=== PATIENT | male | born 1990 ===

== ENCOUNTER 2017-05-17 07:54 | Emergency (ER) | payer OTHER ==
[2017-05-17 08:13] VITALS: BP 153/84; RESP 16
[2017-05-17] MEDS ORDERED: Sodium Chloride 0.9% 1,000 ML IV STA (08:46)
[2017-05-17] MEDS ORDERED: Dexamethasone 10 MG in Sodium Chloride 0.9% 50 ML IV STA (08:47)
[2017-05-17 09:21] LABS: BASO # 0.1 K/uL (0.0-0.2); BASO % 0.4 % (0.0-2.0); EOS # 0.1 K/uL (0.0-0.7); EOS % 0.3 % (0.0-4.0); HEMATOCRIT 43.4 % (35.0-51.0); LYMPH % 5.4 % (20.0-40.0); MEAN CELL VOLUME 85.3 fl (80.0-94.0); MEAN CORPUSCULAR HEMOGLOBIN 28.4 pg (27.0-31.0); MEAN CORPUSCULAR HGB CONC 33.3 g/dL (33.0-37.0); MEAN PLATELET VOLUME 9.5 fl (7.2-11.7); MONO # 1.9 K/uL (0.0-0.8); MONO % 10.3 % (0.0-10.0); NEUT # 15.8 K/uL (1.8-7.0); NEUT % 83.6 % (50.0-75.0); PLATELET COUNT 257 K/uL (130-400); RED CELL DISTRIBUTION WIDTH 12.9 % (11.5-14.5); WHITE BLOOD COUNT 18.9 K/uL (4.8-10.8)
[2017-05-17 09:32] LABS: ALKALINE PHOSPHATASE 78 U/L (38-126); ALT/SGPT 48 U/L (21-72); AST/SGOT 38 U/L (17-59); BILIRUBIN,TOTAL 0.7 mg/dl (0.2-1.3); BLOOD UREA NITROGEN 10 mg/dl (9-20); CALCIUM 9.2 mg/dL (8.4-10.2); CARBON DIOXIDE 25 mmol/L (22-30); CHLORIDE 101 mmol/L (98-107); GFR AFRICAN-AMERICAN > 60; GLUCOSE,RANDOM 137 mg/dL (75-110); POTASSIUM 4.1 MMOL/L (3.6-5.0); SODIUM 139 mmol/l (132-148); TOTAL PROTEIN 8.4 G/DL (6.3-8.2)
--- NOTE | 2017-05-17 09:32 | ED PDOC ---
HPI: General Adult Time Seen by Provider: 05/17/17 08:38 Chief Complaint (Nursing): Flu-like Symptoms Chief Complaint (Provider): Flu-like Symptoms History Per: Patient History/Exam Limitations: no limitations Onset/Duration Of Symptoms: Days (x2) Current Symptoms Are (Timing): Still Present Additional Complaint(s): Khadar Fowler is a 26 year old male with no past medical history who presents to the ED complaining of fever and sore throat x2 days. Denies associated vomiting, diarrhea, cough or nasal discharge. States he last took Tylenol yesterday. PMD: Provider TBD Past Medical History Reviewed: Historical Data, Nursing Documentation, Vital Signs Vital Signs: Last Vital Signs Temp 98.9 F 05/17/17 10:04 Pulse 98 H 05/17/17 10:04 Resp 16 05/17/17 10:04 BP 153/84 H 05/17/17 08:11 Pulse Ox 100 05/17/17 10:04 - Medical History PMH: Asthma, HTN - Surgical History Surgical History: Back Surgery (Lower back cyst removal) - Family History Family History: States: Unknown Family Hx - Social History Current smoker - smoking cessation education provided: No Alcohol: None Drugs: Denies - Home Medications Home Medications: Ambulatory Orders Medication Instructions Recorded Azithromycin [Zithromax] 500 mg PO DAILY #4 tab 05/17/17 Ibuprofen [Motrin Tab] 800 mg PO Q6H PRN #20 tab 05/17/17 - Allergies Allergies/Adverse Reactions: Allergies Allergy/AdvReac Type Severity Reaction Status Date / Time No Known Allergies Allergy Verified 09/04/15 19:59 Review of Systems ROS Statement: Except As Marked, All Systems Reviewed And Found Negative Constitutional: Positive for: Fever ENT: Positive for: Throat Pain. Negative for: Nose Discharge Respiratory: Negative for: Cough Gastrointestinal: Negative for: Vomiting, Diarrhea Physical Exam - Reviewed Nursing Documentation Reviewed: Yes Vital Signs Reviewed: Yes - Physical Exam Appears: Positive for: In Acute Distress (Mild painful distress) Head Exam: Positive for: ATRAUMATIC, NORMAL INSPECTION, NORMOCEPHALIC Skin: Positive for: Normal Color, Warm, Dry Eye Exam: Positive for: EOMI, Normal appearance, PERRL ENT: Positive for: Pharynx Is (erythematous), Tonsillar Swelling, Other (Uvula midline with no exudates) Neck: Positive for: Normal, Painless ROM, Supple Cardiovascular/Chest: Positive for: Tachycardia (regular rhythm). Negative for : Murmur Respiratory: Positive for: Normal Breath Sounds. Negative for: Respiratory Distress Gastrointestinal/Abdominal: Positive for: Normal Exam, Bowel Sounds, Soft. Negative for: Tenderness Back: Positive for: Normal Inspection. Negative for: L CVA Tenderness, R CVA Tenderness, Vertebral Tenderness Extremity: Positive for: Normal ROM. Negative for: Pedal Edema, Deformity Neurologic/Psych: Positive for: Alert, Oriented. Negative for: Motor/Sensory Deficits - Laboratory Results Result Diagrams: 05/17/17 09:11 05/17/17 09:11 - ECG O2 Sat by Pulse Oximetry: 97 (RA) Pulse Ox Interpretation: Normal Medical Decision Making Medical Decision Making: Time: 08:46 Initial Impression: Flu, strep Plan: --VBG shock panel --EKG --CMP --ED urine dipstick --CBC w/ differential --X-Ray chest two views --Decadron Inj, Sodium Chloride 0.9% IV --Decadron Inj 10 mg IVP --Toradol 15 mg IVP --Tylenol 650 mg PO --Blood culture --Coke --Influenza A B --Rapid strep group A antigen --Reevaluation Scribe Attestation: Documented by Richard Alanis acting as a scribe for Dacia Bello MD. Scribe Attestation: All medical record entries made by the Scribe were at my direction and personally dictated by me. I have reviewed the chart and agree that the record accurately reflects my personal performance of the history, physical exam, medical decision making, and the department course for this patient. I have also personally directed, reviewed, and agree with the discharge instructions and disposition. Disposition - Clinical Impression Clinical Impression: Strep pharyngitis - Disposition Referrals: [facility] [Outside] [facility] [Outside] Disposition: Routine/Home Disposition Time: 12:26 Condition: IMPROVED Prescriptions: Azithromycin [Zithromax] 500 mg PO DAILY #4 tab Ibuprofen [Motrin Tab] 800 mg PO Q6H PRN #20 tab PRN Reason: Fever >100.4 F Instructions: Strep Throat (ED) Forms: Murali Singletary (French), [facility] ED School/Work Excuse
[2017-05-17 09:34] LABS: ALB/GLOB RATIO 1.3 (1.0-2.1)
[2017-05-17 09:49] LABS: VENOUS BLOOD GAS BASE EXCESS 1.3 mmol/L (0.0-2.0); VENOUS BLOOD GAS PCO2 36 mmHg (40-60); VENOUS BLOOD PH 7.45 (7.32-7.43)
[2017-05-17] MEDS ORDERED: Azithromycin 500 MG in Sodium Chloride 0.9% 250 ML IV STA (09:52)
[2017-05-17 10:05] VITALS: PULSE 98; TEMP 98.9
[2017-05-17 11:52] LABS: NEUTROPHIL 87 % (42-75); TOTAL CELLS COUNTED 100
--- NOTE | 2017-05-17 12:07 | RAD ---
HISTORY: Fever COMPARISON: No prior. TECHNIQUE: Chest PA and lateral FINDINGS: LUNGS: Increased markings at the end left base, left lower lobe. This may represent subsegmental infiltrate. PLEURA: No significant pleural effusion identified. No pneumothorax apparent. CARDIOVASCULAR: Normal. OSSEOUS STRUCTURES: No significant abnormalities. VISUALIZED UPPER ABDOMEN: Normal. OTHER FINDINGS: None. IMPRESSION: Questionable left lower lobe infiltrate .
--- NOTE | 2017-05-17 13:39 | CARD ---
APPROVED REPORT EKG Measurement Heart [id number] <Conclusion> Sinus tachycardia Otherwise normal ECG
[2017-05-18 19:41] VITALS: O2SAT 97
== END 2017-05-17 12:45 | disposition home or self-care (01) ==
LOC: H.ER 07:54
DX: J02.0 Streptococcal pharyngitis (principal); J45.909 Unspecified asthma, uncomplicated; I10 Essential (primary) hypertension
CPT/HCPCS: 71020; 80053; 82803; 85025; 86308; 87040; 87430; 87804; 93005; 96361; 96365; 96375; 99284; J0456; J1100; J1885; J7040

== ENCOUNTER 2018-06-16 06:57 | Emergency (ER) | payer OTHER ==
[2018-06-16 07:09] VITALS: TEMP 100.7; O2SAT 96; BMI 32.3
[2018-06-16] MEDS ORDERED: Albuterol-Ipratrop 3 mg / 0.5 (3 ml) UD INH STA (07:34)
--- NOTE | 2018-06-16 07:55 | ED PDOC ---
History of Present Illness History of Present Illness: 28 y/o male with history of hypertension presents to ER for evaluation of cough, congestion, runny nose and chest pain onset yesterday. Patient reports having chest pain and back pain only when coughing as well as eye pain. He states runny nose is resolved now. Patient denies any nausea, vomit, diarrhea, abdominal pain, shortness of breath, allergies or taking any medications. PMD: non provided HPI: Influenza Time Seen by Provider: 06/16/18 07:16 Chief Complaint: Cough, Cold, Congestion Chief Complaint (Provider): Cough, Cold, Congestion History Per: Patient Exam Limitations: no limitations Onset/Duration Of Symptoms: Days (x1) Symptoms include: cough, nasal congestion, chest pain. denies: diarrhea, difficulty breathing Past Medical History Reviewed: Historical Data, Nursing Documentation, Vital Signs Vital Signs: Last Vital Signs Temp 100.7 F H 06/16/18 07:09 Pulse 106 H 06/16/18 07:09 Resp 20 06/16/18 07:09 BP 147/73 06/16/18 07:09 Pulse Ox 96 06/16/18 07:09 - Medical History PMH: Asthma, HTN - Surgical History Surgical History: Back Surgery (Lower back cyst removal) - Family History Family History: States: Unknown Family Hx - Social History Current smoker - smoking cessation education provided: Yes Alcohol: Social Drugs: Denies - Home Medications Home Medications: Ambulatory Orders Medication Instructions Recorded Azithromycin [Zithromax] 500 mg PO DAILY #4 tab 05/17/17 Ibuprofen [Motrin Tab] 800 mg PO Q6H PRN #20 tab 05/17/17 Albuterol Sulfate [Proair Hfa] 0.09 mg IH Q6H PRN #2 inh 06/16/18 Benzonatate [Tessalon Perles] 100 mg PO BID PRN 5 Days sgl 06/16/18 Ibuprofen [Motrin] 600 mg PO TID 7 Days tab 06/16/18 Oseltamivir Phosphate [Tamiflu] 75 mg PO BID 5 Days capsule 06/16/18 predniSONE [predniSONE Tab] 20 mg PO BID 5 Days tab 06/16/18 - Allergies Allergies/Adverse Reactions: Allergies Allergy/AdvReac Type Severity Reaction Status Date / Time No Known Allergies Allergy Verified 09/04/15 19:59 Review of Systems ROS Statement: Except As Marked, All Systems Reviewed And Found Negative ENT: Positive for: Nose Congestion Cardiovascular: Positive for: Chest Pain Respiratory: Positive for: Cough. Negative for: Shortness of Breath Gastrointestinal: Negative for: Abdominal Pain, Diarrhea Musculoskeletal: Positive for: Back Pain (but no numbness/tingles/incontinence/constipation) Physical Exam - Reviewed Nursing Documentation Reviewed: Yes Vital Signs Reviewed: Yes - Physical Exam Appears: Positive for: Non-toxic, No Acute Distress Head Exam: Positive for: ATRAUMATIC, NORMOCEPHALIC Skin: Positive for: Normal Color, Warm, Dry Eye Exam: Positive for: Normal appearance, EOMI, PERRL ENT: Positive for: Nasal Congestion Neck: Positive for: Normal, Painless ROM, Supple Cardiovascular/Chest: Positive for: Regular Rate, Rhythm. Negative for: Murmur Respiratory: Positive for: Wheezing (end expiratory bilaterally ) Gastrointestinal/Abdominal: Positive for: Normal Exam, Soft. Negative for: Tenderness Back: Positive for: Normal Inspection. Negative for: L CVA Tenderness, R CVA Tenderness Extremity: Positive for: Normal ROM. Negative for: Pedal Edema, Swelling Neurologic/Psych: Positive for: Alert, Oriented (x3) Medical Decision Making Medical Decision Making: Time: 733 Initial Plan: --Duoneb 4 ml INH --Tessalon Perles 100 mg PO --Toradol 15 mg IM --Prednisone 6 0mg PO --Peak flow pre/post treatment --Influenza A B Scribe Attestation: Documented by Delmis Nick, acting as a scribe for Nitish Castañeda MD. Provider Scribe Attestation: All medical record entries made by the Scribe were at my direction and personally dictated by me. I have reviewed the chart and agree that the record accurately reflects my personal performance of the history, physical exam, medical decision making, and the department course for this patient. I have also personally directed, reviewed, and agree with the discharge instructions and disposition. - Laboratory Results Interpretation Of Abn Labs: pos flu - ECG O2 Sat by Pulse Oximetry: 96 (RA) Pulse Ox Interpretation: Normal - Progress ED Course And Treament: 849: Stable. AAOx3. Pain free. Tolerated PO. Fu with pcp. Disposition - Clinical Impression Clinical Impression: Flu - Patient ED Disposition Is Patient to be Admitted: No Counseled Patient/Family Regarding: Studies Performed, Diagnosis, Need For Followup, Rx Given - Disposition Referrals: [facility] [Outside] - 06/17/18 Disposition: Routine/Home Disposition Time: 08:51 Condition: STABLE Additional Instructions: Return if not better in 3 days. Prescriptions: Albuterol Sulfate [Proair Hfa] 0.09 mg IH Q6H PRN #2 inh PRN Reason: Wheezing Benzonatate [Tessalon Perles] 100 mg PO BID PRN 5 Days sgl PRN Reason: Cough Ibuprofen [Motrin] 600 mg PO TID 7 Days tab Oseltamivir Phosphate [Tamiflu] 75 mg PO BID 5 Days capsule predniSONE [predniSONE Tab] 20 mg PO BID 5 Days tab Instructions: Flu, Adult (DC) Forms: [employer] (Maltese), [facility] ED School/Work Excuse
[2018-06-16] MEDS ORDERED: Albuterol-Ipratrop 3 mg / 0.5 (3 ml) UD ONE (08:14)
[2018-06-16 13:06] VITALS: BP 140/70; PULSE 92; RESP 18
== END 2018-06-16 09:40 | disposition home or self-care (01) ==
LOC: H.ER 06:57
DX: J11.1 Influenza due to unidentified influenza virus with other respiratory manifestations (principal); I10 Essential (primary) hypertension
CPT/HCPCS: 87804; 96372; 99282; J1885